=== PATIENT | female | born 1960 | race Caucasian/White ===

== ENCOUNTER → 2022-04-21 09:29 | Outpatient (CLI) | payer OTHER, SELFPAY ==
[2022-04-21 10:56] LABS: COVID19 -Nasal RAPID Negative (Negative)
== END ==
PROVIDERS: PCP Family Medicine; Referring Provider Orthopaedic Surgery Orthopaedic Surgery of the Spine; Visit Provider Orthopaedic Surgery Orthopaedic Surgery of the Spine
DX: Z20.822 Contact with and (suspected) exposure to COVID-19 (principal)
CPT/HCPCS: 87635; C9803

== ENCOUNTER 2022-04-22 12:49 | Inpatient (IN) | payer OTHER, SELFPAY ==
[2022-04-15 13:48] VITALS: BMI 39.4
[2022-04-22] VITALS (16 sets, daily range): BP systolic 107–141; BP diastolic 59–94; PULSE 67–86; RESP 5–18; TEMP 36–36.8; O2SAT 90–98; BMI 39.4
--- NOTE | 2022-04-22 | DI.RAD.S_ITS ---
PROCEDURE: XR LUMBAR SPINE 2-3V INDICATIONS: L3-4 TLIF TECHNIQUE: 2 views of the lumbar spine were acquired. COMPARISON: Outside Film, MR, MR LUMBAR SPINE WITHOUT CONTRAST, 02/09/2022, 16:29. FINDINGS: 2 intraoperative fluoroscopic images demonstrate posterior/interbody fusion at the L3-L4 level with hardware and intervertebral spacer in expected positions. Cholecystectomy clips. IMPRESSION: Intraoperative images demonstrating posterior/interbody fusion L3-L4. Dictated by: Denis CORBIN Interpreted: Sean Rodrigez MD on 04/22/2022 at 17:10 Transcribed by: ALFIE on 04/22/2022 at 17:11 Approved by: Sean Rodrigez M.D. on 04/23/2022 at 9:38
[2022-04-22] MEDS: LACTATED RINGERS 1,000 ML 42 ML IV ×2 (13:45→16:05)
--- NOTE | 2022-04-22 13:45 | PM.PREOP ---
Pre-operative Note COVID-19 COVID-19 status: Negative Result date/Date tested (Pos, Neg/Pending): 04/21/22 Criteria for continued procedure: Expected advancement of disease process, Possibility delay results in more complex future surgery or treatment, Increased loss of function, Continuing or worsening of significant or severe pain, Deterioration of the patient's condition or overall health and Delay expected to result in less-positive ultimate med/surg outcome Interval Note History & Physical reviewed/Exam performed by Physician: Yes Changes to H&P: No
[2022-04-22] MEDS: CEFAZOLIN 2 GM/100 ML PREMIX 100 ML IV ×2 (14:15→21:54)
[2022-04-22] MEDS: BUPIVACAINE 0.25% (PF) 60 ML, EPINEPHrine 0.3 MG INJ (14:30)
[2022-04-22] MEDS: BUPIVACAINE LIPOSOME 266 MG/20 ML VIAL INJ (14:40)
--- NOTE | 2022-04-22 14:45 | SUR.OPER ---
Prone on spine table, head in foam head support, padded chest and pelvic supports, gel pad at knees, lower legs supported by pillows; nipples, genitalia and toes free of pressure, arms secured on foam padded arm boards at <90 degrees abduction. Gel roll placed between heels. Tape over blanket at thigh secured to table.
--- NOTE | 2022-04-22 16:43 | P.OP_ITS ---
Operative Date/Time/Diagnoses Date of procedure: 04/22/22 Time of procedure: 14:00 Pre-op diagnosis: 1. L3-4 spinal stenosis 2. L3-4 spondylolisthesis Post-op diagnosis: same Procedure & Clinicians Procedure: 1. L3-4 Postero-lateral and posterior interbody fusion 2. L3-4 interbody cage placement. 3. L3-4 decompressive laminectomy with bilateral facetecomies 4. L3-4 Posterior non-segmental instrumentation 5. [place] of bone marrow from iliac crest 6. Utilization of microsurgical technique and operating microscope Same procedure as scheduled: Yes Indications: Patient has been having chronic back pain and worsening lumbar radiculopathy. Patient failed multiple conservative management with worsening pain weakness and numbness in her lower extremity. Patient has been having difficulty performing activity of daily living. After discussing risks benefits of treatment options, patient elected proceed with surgery. Surgeon: Carlos Sanz Resolution Manager: Charisse Chow Click Yes if Unassisted: No Anesthesia Type: General Operative Notes Closure Type: primary Specimen(s): none sent Prosthetic devices, grafts, tissues, transplants, or devices: Globus revolve screws, Rise cage Estimated Blood Loss (mL): 50 Blood products transfused: none Procedure in detail: Patient was seen in the preoperative area. Risks and benefits of the surgery was discussed with the patient. Informed consent was obtained from the patient and placed in the chart. Surgical site was marked. Patient was taken to the operative room. General anesthesia was administered. Prophylactic antibiotic was given to the patient less than 30 min before the incision was made. Patient was placed into a prone position on the Jordan table. Patient's back was then prepped and draped in the sterile fashion. Time-out was performed at this time. Using AP and lateral C-arm imaging the interval between L3-4 was identified and marked on patient's back. A 2 inch incision 2 in from midline was made on the right side first. The fascia was incised in line with skin incision. Globus MARS retractors was placed inside the incision and docked onto the L3 lamina. Using microsurgical technique and operating microscope, a L3 laminectomy and L3- 4 facetectomy was performed using a [place] rongeur. The disc space at L3-4 was identified. And a total diskectomy was performed at L3-4 level. The endplates were decorticated using a rasp and shaver. The total diskectomy and decortication was performed at L3-4 level in order to to accomplish a L3-4 fusion. The local bone from the laminectomy and facetectomy was saved for local bone grafting. After the total diskectomy and decortication was completed, Globus Trifecta bone graft material was combined with local bone that was harvested earlier. At this time, a separate skin is incision was made over the iliac crest. A Jamshidi needle was inserted into the iliac crest through a separate skin incision. 5 cc of bone marrow aspiration was obtained through the separate skin incision using a Jamshidi needle from the iliac crest. The bone marrow aspiration was combined with local bone and theTrifecta bone grafting material. The bone grafting material was placed into the L3-4 interbody space along with a expandable cage. The cage was expanded to its maximum height using the torque limiting screwdriver. At this time a mirror image incision was made on the left side. The fascia was incised in line with the skin incision. Globus MARS retractor was inserted and docked onto the L3-4 posterolateral gutter. Using the power drill, posterior- lateral decortication was performed at L3-4 level until bleeding cortical bone was identified. The remaining bone grafting material was placed into the L3-4 posterior lateral gutter he order to accomplish posterolateral fusion at the L3- 4 level. Using the double C-arm technique, pedicle screws were placed into the L3-4 pedicles bilaterally. This was done by placing the Jamshidi needle into the pedicles, then placing the guidewires over the Jamshidi needle, and finally placing the cannulated screws over the guidewires bilaterally. After the pedicle screws were placed, 2 titanium rods was locked into the heads of the pedicle screws using locking caps and torque limiting screwdriver. After all the hardware was placed, and confirmed with AP and lateral C-arm imaging, the wound was then irrigated with sterile normal saline and packed with Ray-Boni gauze for 3 min to accomplish hemostasis. After the gauze was removed the deep fascia was closed with #1 Vicryl suture. The subcutaneous layer was closed with 2-0 Vicryl. The skin was closed with skin cristina. Patient tolerated the procedure well. There were no complications. Complications: none Post-operative Condition: stable Disposition: PACU Plan for aftercare: Admit to inpatient hospital
[2022-04-22] MEDS: hydrOXYzine 50 MG/ML INJ IM (16:48)
[2022-04-22] MEDS: OXYCODONE/ACETAMINOPHEN 5/325 TABLET 1 TAB PO ×2 (16:59→17:38)
[2022-04-22] MEDS: LORazepam 2 MG/ML INJ 0.5 MG IV (17:07)
--- NOTE | 2022-04-22 17:28 | SUR.PHASEI ---
Report given to
[2022-04-22] MEDS: SODIUM CHLORIDE 0.9% 1,000 ML 100 ML IV (18:38)
[2022-04-22] MEDS: HYDROMORPHONE 0.5 MG INJ IV (19:51)
[2022-04-22] MEDS: NABUMETONE 500 MG TABLET PO (20:34)
[2022-04-22] MEDS: DOCUSATE 100 MG CAPSULE PO (20:35)
[2022-04-22] MEDS: AMITRIPTYLINE 25 MG TABLET 50 MG PO (20:35)
[2022-04-22] MEDS: miSOPROStoL 100 MCG TABLET PO (20:35)
[2022-04-22] MEDS: SENNOSIDES 8.6 MG TABLET 17.2 MG PO (20:36)
[2022-04-22] MEDS: CYCLOBENZAPRINE 10 MG TABLET PO (20:36)
[2022-04-22] MEDS: OXYCODONE IR 5 MG TABLET 10 MG PO (22:40)
[2022-04-23] MEDS: OXYCODONE IR 5 MG TABLET 10 MG PO ×3 (01:40→08:48)
--- NOTE | 2022-04-23 02:15 | PC.NURSE ---
Patient is alert and oriented. Breath sounds CTA with RA sat of 93%. HRR. Denies nausea. BT present but has not yet passed flatus. Had not voided, at shift change, since 1300 but did get up shortly before 2100 and voided 150cc; denies dysuria. Is assisted to reposition at patient's request. Dressing to back intact with serosanguinous shadow drainage. Wearing bilateral calf SCD's. Complains of pain on right side of back and has been medicated with both IV Dilaudid as well as po oxycodone and ice packs applied with good relief. Wearing bilateral SCD's. Fall risk score is high and bed alarm is activated.
[2022-04-23 04:07] VITALS: BP 112/68; PULSE 86; RESP 18; TEMP 36.4; O2SAT 95
[2022-04-23] MEDS: SODIUM CHLORIDE 0.9% 1,000 ML 100 ML IV (04:57)
[2022-04-23] MEDS: CEFAZOLIN 2 GM/100 ML PREMIX 100 ML IV (06:01)
[2022-04-23] MEDS: PANTOPRAZOLE DR 20 MG TABLET PO (06:03)
--- NOTE | 2022-04-23 07:28 | P.DS_ITS ---
History of Present Illness History of Present Illness Date Patient Seen: 04/23/22 Time Patient Seen: 07:28 Chief complaint: INPT Narrative: Operative Date/Time/Diagnoses Date of procedure: 04/22/22 Time of procedure: 14:00 Pre-op diagnosis: 1. L3-4 spinal stenosis 2. L3-4 spondylolisthesis Post-op diagnosis: same Procedure & Clinicians Procedure: 1. L3-4 Postero-lateral and posterior interbody fusion 2. L3-4 interbody cage placement. 3. L3-4 decompressive laminectomy with bilateral facetecomies 4. L3-4 Posterior non-segmental instrumentation 5. [place] of bone marrow from iliac crest 6. Utilization of microsurgical technique and operating microscope Same procedure as scheduled: Yes Indications: Patient has been having chronic back pain and worsening lumbar radiculopathy. Patient failed multiple conservative management with worsening pain weakness and numbness in her lower extremity.? Patient has been having difficulty performing activity of daily living.? After discussing risks benefits of treatment options, patient elected proceed with surgery. Surgeon: Carlos Sanz Executive Office Manager: Charisse Chow Click Yes if Unassisted: No Anesthesia Type: General Operative Notes Closure Type: primary Specimen(s): none sent Prosthetic devices, grafts, tissues, transplants, or devices: Globus revolve screws, Rise cage Estimated Blood Loss (mL): 50 Blood products transfused: none Discharge Providers Provider Date of admission: 04/22/22 12:49 Discharge Date: 04/23/22 Primary care physician: Ingris Toribio DO Consults: 04/22/22 18:21 Consult to Occupational Therapy Evaluate & Treat Comment: Physician Instructions: Evaluate and treat Consult to Physical Therapy Evaluate & Treat Comment: Physician Instructions: Evaluate and Treat Discharge provider: Lisa Allen PA-C Summary Hospital Course Discharge Diagnosis: spinal stenosis and spondylothesis s/p lumbar fusion Hospital Course: Ms Connell's hospital course was unremarkable. On POD# 1 she was feeling well and wanted to go home. She was voiding and eating without difficulty. Her pain was well-controlled with oral medication. She was evaluated by PT prior to discharge. Exam Vital Signs (past 8 hours): - 04/23/22 04:07 Temperature 97.6 F Pulse Rate 86 Respiratory Rate 18 Blood Pressure 112/68 Pulse Oximetry 95 Oxygen Flow Rate 0 Oxygen Delivery Method Room Air Oxygen Flow Rate 0 Narrative Exam Narrative: 5/5 strength in hip flexors, quadriceps, hamstrings, DF, PF, EHL bilaterally. Sensation to light touch intact in BLE. Calves soft, compressible, nontender and without palpable cords or masses. Low back dressing with some bloody drainage, L>R. [facility] Medical History (Updated 04/15/22 @ 14:18 by Dina Moore RN) Depression Elevated cholesterol HTN (hypertension) JOHNNIE (obstructive sleep apnea) Sciatica Stomach ulcer (~2012) Surgical History (Updated 04/23/22 @ 07:35 by Lisa Allen PA-C) History of bilateral tubal ligation History of carpal tunnel surgery of right wrist History of lumpectomy of left breast Hx of cholecystectomy (1984) Hx of dilation and curettage (~1988) Hx of laminectomy (2015) Social History household members: significant other Smoking Status: Never smoker alcohol intake: current Discharge Assessment & Plan Assessment and Plan Assessment: spinal stenosis and spondylothesis s/p lumbar fusion Plan of Treatment: Discharge home after PT if PT agrees. Multimodal pain control, f/u in office in 2 weeks. Discharge Plan Discharge Plan Patient Disposition: Home Discharge orders & Medications Prescriptions: New oxycodone 5 mg tablet 5 mg PO Q4H PRN (Reason: pain (scale score 7-10)) Qty: 60 0RF docusate sodium 100 mg Capsule 100 mg PO BID PRN (Reason: constipation) Qty: 60 2RF hydroxyzine pamoate 25 mg Capsule 25 mg PO Q4HR PRN (Reason: Nausea And Vomiting) Qty: 120 0RF acetaminophen 325 mg Tablet 650 mg PO Q6HR PRN (Reason: Pain, Mild (1-3)) Qty: 120 0RF Continued losartan 50 mg Tablet 50 mg PO DAILY cyclobenzaprine 10 mg Tablet 10 mg PO BID propranolol 40 mg Tablet 40 mg PO QAM amitriptyline 25 mg Tablet 50 mg PO BEDTIME omeprazole 20 mg Capsule,Delayed Release(Dr/Ec) 20 mg PO DAILY nabumetone 500 mg Tablet 500 mg PO QID PRN (Reason: Pain) misoprostol 100 mcg PO QID Discontinued hydrocodone-acetaminophen 5-325 mg Tablet 1 tab PO Q4-6H PRN (Reason: Pain) Follow up/Referrals: Ingris Toribio DO [Primary Care Provider] - Carlos Sanz MD [Physician] - As previously scheduled (Follow up with Lisa Allen PA-C, on 05/05/2022 @ 9:30 am at [facility] office in [place].) Diet/Activity/Treatments Diet: Diet as Tolerated Activity: No deep bending or twisting at the waist. No lifting more than 10 pounds. Cold/Heat Therapy: Heating pad to back as needed for pain. Skin/Wound/Dressing Care Report to your healthcare provider any signs of infection, such as:: chills, fever, night sweats, unusual drainage and unusual redness Dressing: May shower; keep dressing as dry as possible. May remove dressing if it becomes wet inside and replace with clean, dry gauze. No bathing or otherwise soaking incisions. Do not apply any creams, lotions, or ointments to incisions. Visit Report/Discharge Packet Instructions: DI for Prescription Opioid Use, DI for Transforaminal Lumbar Interbody Fusion Stand Alone Forms: Surgery Discharge Discharge Data Primary Care Provider: Ingris Toribio
[2022-04-23 08:48] VITALS: BP 95/72; PULSE 92; RESP 16; TEMP 36.2; TEMP 36.4; O2SAT 95
[2022-04-23] MEDS: PROPRANOLOL 40 MG TABLET PO (08:49)
[2022-04-23] MEDS: CYCLOBENZAPRINE 10 MG TABLET PO (08:50)
[2022-04-23 08:51] VITALS: BP 95/72; PULSE 92
[2022-04-23] MEDS: LOSARTAN 50 MG TABLET PO (08:51)
[2022-04-23] MEDS: DOCUSATE 100 MG CAPSULE PO (08:52)
[2022-04-23 08:53] VITALS: TEMP 37
[2022-04-23] MEDS: ACETAMINOPHEN 325 MG TABLET 650 MG PO (08:53)
[2022-04-23] MEDS: miSOPROStoL 100 MCG TABLET PO (08:53)
[2022-04-23] MEDS: HYDROMORPHONE 0.5 MG INJ IV (08:54)
--- NOTE | 2022-04-23 09:45 | PT.IIE ---
Current Diagnoses Spondylolisthesis, lumbar region (04/22/22) Spinal stenosis, lumbar region with neurogenic claudication (04/22/22) Arthrodesis status (04/22/22) Surgery Performed Operation Date: 04/22/22 14:45 Actual Procedures p L3-4 TLIF - Carlos Sanz MD Surgical History (Last Updated 04/15/22 @ 14:18 by Dina Moore, RN) History of bilateral tubal ligation History of carpal tunnel surgery of right wrist History of lumpectomy of left breast Hx of cholecystectomy (1984) Hx of dilation and curettage (~1988) Hx of laminectomy (2015) Medical History (Last Updated 04/15/22 @ 14:18 by Dina Moore, [place]) Depression Elevated cholesterol HTN (hypertension) JOHNNIE (obstructive sleep apnea) Sciatica Stomach ulcer (~2012) Physical Therapy Inpatient Evaluation/Re-Eval M1 PT/OT-IP Prior Functional Status Start: 04/23/22 12:30 Freq: NEEDED Status: Active Protocol: Document 04/23/22 09:45 AB (Rec: 04/23/22 12:40 AB [id number]) Medical Review Prior Functional Status Medical History Reviewed Yes Communication able to make needs known Mobility and Gait pt stated that she is indpeendent wiht all moblities and ambualtion without AD Social History Household Members significant other Living Arrangements House Number of Floors (Floors) One Floor Number of Stairs To Enter/Railing? 1 step up to bathroom level Home Environment Standard Height Toilet,Walk in Shower Home Equipment Front Wheel Walker,Four Wheel Walker,Straight Cane,Raised Toilet Seat w/Armrests,Hand Held Shower Additional Social History Comment pt has an adjustable bed pt will have her partner assist her as well as her daughter coming in daily to assist her if needed M2 PT-IP Current Condition Start: 04/23/22 12:30 Freq: NEEDED Status: Active Protocol: Document 04/23/22 09:45 AB (Rec: 04/23/22 12:40 AB [email or web address]) Physical Therapy Current Condition Current Condition Evaluation Date 04/23/22 Treatment Diagnosis s/p L3-4 TLIF; difficulty in walking Onset Date 04/22/22 M3 PT-IP Subjective Start: 04/23/22 12:30 Freq: NEEDED Status: Active Protocol: Document 04/23/22 09:45 AB (Rec: 04/23/22 12:40 [id number]) Subjective Physical Therapy Visit Type Type Initial Evaluation Visit Start Time 09:45 Visit Stop Time 10:11 Total Visit Minutes 26 Number of MEDICAID ANALYST Visits 0 Physical Therapy Visit Comments Patient Comments pt is agreeable to do PT Therapy Pain Assessment Pain When Pain Assessed At Rest Pain Present Pain Present Pain Reported Location Lower Back Intensity 4 Scale Used Numeric (0 - 10) Pain Management Techniques Apply Cold,Distraction, Modification of Treatment,Re- positioning,Timing of Activity with Medications M4 PT-IP Mobility and Gait Start: 04/23/22 12:30 Freq: NEEDED Status: Active Protocol: Document 04/23/22 09:45 AB (Rec: 04/23/22 12:40 [id number]) PT-Bed Mobility Assessment Rolling Type of Rolling Log Rolling Level of Assist Standby Assistance Supine to Sit Supine to Sit Standby Assistance PT-Transfer Assessment Sit to and From Stand Sit to and from Stand Standby Assistance Equipment Transfer Assistive Device Gait Belt,Front Wheeled Walker Orthotic/Prosthetic Devices or Brace: No Transfers Transfer Destination Chair Transfer Technique ambulated Transfer Ability Level of Assist Standby Assistance,1 Person Assistance,Use of Upper Extremities Comments Mobility Comments reviewed back precautions with pt and pt requires cues to recall. completed log rool supine to sit SBA. able to sit on EOB SBA. completed sit to stand SBA and ambulated in room ~ 40 ft using FWW SBA. educated pt on up/down platform step. ambulated towards platform step and completed up/down step using FWW SBA to CGA. pt ambulated back to her room using FWW and sat on chair. positioned on chair. call light and table placed within reach. pt and daughter without further concerns. Gait Assessment Gait Gait Assistance Required: Standby Assistance Distance (Feet) 40 Able to Maintain Weight Bearing Status Yes During Gait Assistive Devices Assistive Device Gait Belt,Front Wheeled Walker Orthotic/Prosthetic Devices or Brace: No Gait Deviations General Gait Pattern Antalgic,Decreased Stride Length,Decreased Feet Clearance Factors Limiting Gait Function Factors Limiting Gait Function Decreased Activity Tolerance, Decreased Strength,Limited Range of Motion,Pain,Poor Balance Stair Climbing Assessment Evaluation Level of Assist On Stairs Standby Assistance,Contact Guard Assistance Devices Stair Climbing Assistive Devices Front Wheel Walker Technique/Endurance Stair Climbing Direction Ascend and Descend Stair Climbing Technique Step to Step Number of Steps Climbed 1 Query Text: Stair Climbing Set # Repetitions (reps) 2 PT-Balance Assessment Sitting Balance and Reactions Static Sitting Balance Ability Normal Dynamic Sitting Balance Ability Normal Standing Balance and Reactions Static Standing Balance Ability Fair Dynamic Standing Balance Ability Fair Device Used FWW M5 PT-IP Objective Assessments Start: 04/23/22 12:30 Freq: NEEDED Status: Active Protocol: Document 04/23/22 09:45 AB (Rec: 04/23/22 12:40 AB [email or web address]) Orientation Orientation/Cognition Level of Alertness Alert Orientation Name,Place,Situation Language Function Ability No Deficits Noted Safety Awareness Understands Safety Issues Memory Description No Deficits Noted Gross Range of Motion Lower Extremity ROM Assessment Within Functional Limits Strength Lower Extremity Strength Assessment Within Functional Limits Coordination Assessment Gross Coordination Gross Coordination WNL Muscle Tone Muscle Tone WNL Yes M6 PT-IP Treatment Start: 04/23/22 12:30 Freq: NEEDED Status: Active Protocol: Document 04/23/22 09:45 AB (Rec: 04/23/22 12:[facility] Treatment Education Education Provided Precautions,Weight Bearing Status,Safety M7 PT-IP Assessment and Plan Start: 04/23/22 12:30 Freq: NEEDED Status: Active Protocol: Document 04/23/22 09:45 AB (Rec: 04/23/22 12:40 [facility] PT Summary Assessment and Plan Potential Rehabilitation Potential Good Status of Condition at Evaluation Stable Summary Impairments Pain,ROM,Strength,Balance, Coordination,Sensation,Tone, Cognition,Bed Mobility, Transfers,Gait,Activity Tolerance Assessment Summary pt requiring SBA with mobility using FWW and plans to go home with her significant other and daughter to assist as needed. pt may go home when medically stable. Goals Bed Mobility Goal Independent Transfer Goal Independent,Front Wheeled Walker Gait Goal Independent,Front Wheel Walker Gait Distance 250 Other Goals up/down 1 step using FWW mod I Days to Meet Goals 3 Frequency of Treatment Frequency Of Treatment Twice a Day Treatment Plan Physical Therapy Treatment Plan Bed Mobility Training,Transfer Training,Gait Training, Therapeutic Exercise,Balance Retraining,Post Op Education, Discharge Planning,Hot or Cold Pack,Neuromuscular Re-ed, Coordination Retraining,Manual Therapy Precautions Lumbar Precautions Log Roll,No Twisting,Limit Bending,Lifting Restriction of 10 lbs,Gait Belt above Incisional Area Recommendations To Nursing Amount of Assist Needed Standby Assistance Discharge Recommendations PT Discharge Recommendations Home with Assistance Transportation Needs at Discharge Private Vehicle
--- NOTE | 2022-04-23 09:46 | OT.IP.EVAL ---
Current Diagnoses Spondylolisthesis, lumbar region (04/22/22) Spinal stenosis, lumbar region with neurogenic claudication (04/22/22) Arthrodesis status (04/22/22) Surgery Performed Operation Date: 04/22/22 14:45 Actual Procedures p L3-4 TLIF - Carlos Sanz MD Past Medical History (Last Updated 04/15/22 @ 14:18 by Dina Moore, RN) Depression Elevated cholesterol HTN (hypertension) JOHNNIE (obstructive sleep apnea) Sciatica Stomach ulcer (~2012) Surgical History (Last Updated 04/15/22 @ 14:18 by Dina Moore RN) History of bilateral tubal ligation History of carpal tunnel surgery of right wrist History of lumpectomy of left breast Hx of cholecystectomy (1984) Hx of dilation and curettage (~1988) Hx of laminectomy (2015) Occupational Therapy Inpatient Evaluation/Re-Eval M1 PT/OT-IP Prior Functional Status Start: 04/23/22 12:30 Freq: NEEDED Status: Active Protocol: Document 04/23/22 12:36 [facility] (Rec: 04/23/22 12:54 [facility] [id number]) Medical Review Prior Functional Status Communication independent Mobility and Gait Pt states could only do a couple steps before having pain and having to sit down. Activities of Daily Living and IADL's Pt states able to do her ADL's and shared IADl need with her significant other. Social History Household Members significant other Living Arrangements House Number of Floors (Floors) Two Floors Number of Stairs To Enter/Railing? Pt lives in the downstairs of the house. Pt has one step into the bathroom. There is a cabinet to the right to assist for the step. Home Environment Standard Height Toilet,Walk in Shower Home Equipment Front Wheel Walker,Four Wheel Walker,Straight Cane,Raised Toilet Seat w/Armrests,Shower Seat with Backrest,Hand Held Shower,Long Handled Shoe Horn, Inside Sales Trainer,Sock Aid Additional Social History Comment Pt's significant other to assist and daughter as needed. Pt looking to sleep in the adjustable bed of her significant other at this time and therefore to be getting out on the left side. M2 OT-IP Current Condition Start: 04/23/22 12:32 Freq: Status: Active Protocol: Document 04/23/22 12:36 [facility] (Rec: 04/23/22 12:54 [facility] [id number]) Occupational Therapy Current Condition Current Condition Evaluation Date 04/23/22 Treatment Diagnosis S/p L3-4 TLIF Diagnosis Onset Date 04/22/22 Post Operative Precautions Lumbar Precautions Log Roll,No Twisting,Limit Bending,Lifting Restriction of 10 lbs,Gait Belt above Incisional Area M3 OT- IP Subjective and Pain Start: 04/23/22 12:32 Freq: Status: Active Protocol: Document 04/23/22 12:36 [facility] (Rec: 04/23/22 12:54 [facility] [id number]) OT- Subjective Occupational Therapy Visit Type Visit Start Time 09:10 Visit Stop Time 09:46 Total Visit Minutes 36 Occupational Therapy Visit Comments Patient Comments Pt agreed to get up and her daughter present in the room. Patient/Caregiver Goals TO go home. OT Pain Assessment Pain When Pain Assessed At Rest Pain Present Pain Present Pain Reported Location Lower Back Intensity 3 Scale Used Numeric (0 - 10) M4 OT- IP ADL's Start: 04/23/22 12:32 Freq: Status: Active Protocol: Document 04/23/22 12:36 [facility] (Rec: 04/23/22 12:54 [facility] [id number]) OT [id number] Comments OT Self-Feeding Comments Not at meal time. OT ADL-Grooming General Evaluation Grooming Ability Standby Assistance Areas Needing Assistance Retrieving/Set-up of Grooming Items OT ADL-Oral Care General Eval Oral Care Ability Independent Comments Oral Care Comments Initial vc to spit in to a cup to best follow her back precautions. OT ADL-Dressing General Eval Upper Body Dressing Ability Standby Assistance Lower Body Dressing Ability Maximum Assistance Comments OT Dressing Comments Pt just wanting her daughter to assist at this time for LB dressing needs, but does have LB dressing equipment at home to use. OT ADL-Toileting Comments OT Toileting Comments At this time pt unable to reach back to wipe and would benefit from toilet paper aid /bidet/wet ones and assist. OT ADL-Bathing Comments OT Bathing Comments Pt not wanting to shower at this time. M5 OT- IP IADL's Start: 04/23/22 12:32 Freq: Status: Active Protocol: Document 04/23/22 12:36 [facility] (Rec: 04/23/22 12:54 [facility] [id number]) OT-Instrumental Activities of Daily Living Home Safety Awareness Ability to Problem Solve Emergency Able to Problem Solve Situations Home Safety Comments Pt's significant other will be able to assist for all needs. Money Management Money Management Caregiver Provides Assistance Meal Preparation Meal Preparation Caregiver Provides Assist Meteorologist In Charge Meteorologist In Charge Caregiver Provides Assist M6 OT- IP Functional Cognition Start: 04/23/22 12:32 Freq: Status: Active Protocol: Document 04/23/22 12:36 [facility] (Rec: 04/23/22 12:54 [facility] [id number]) Cognitive Factors Limiting Selfcare Function Cognitive Ability Level of Alertness Alert Patient Orientation Name,Age,Birthday,Month,Date, Year,Day of Week,Place, Situation Attention Span Ability Capable of Focused Attention, Capable of Sustained Attention Ability to Follow Commands Able to Follow Multi-Step Commands Memory Description No Deficits Noted Safety Awareness No Deficits Noted Problem Solving Ability No deficits Noted Cognitive Comments Cognitive Assessment Comments Pt intact and able to follow her back precautions well for all ADl and mobility needs at this time. OT- Vision and Hearing OT- Hearing Assessment OT- Hearing Assessment WF M7 OT- IP Mobility and Balance Start: 04/23/22 12:32 Freq: Status: Active Protocol: Document 04/23/22 12:36 [facility] (Rec: 04/23/22 12:54 [facility] [id number]) OT- Bed Mobility Assessment Rolling Type of Rolling Roll to Left Level of Assistance Standby Assistance,Bedrails Supine to Sit Supine to Sit Assist Contact Guard Assistance Sit to Supine Sit to Supine Assist Minimal Assistance Scooting Scooting to Edge of Bed Standby Assistance OT-Transfer Assessment Sit to and From Stand Sit to and from Stand Standby Assistance Transfers Transfer Ability Standby Assistance Technique Transfer Destination Bed Transfer Technique Stand Step Pivot Devices Transfer Assistive Devices Gait Belt,Front Wheeled Walker Comments Mobility Comments Able to educated pt's daughter to michelle/doff gait belt and went over need for assist for her legs back into bed. Pt mainly just SBA at this time with the FWW for level surfaces in the room . OT- Balance Assessment Sitting Balance and Reactions Static Sitting Balance Ability Normal Dynamic Sitting Balance Ability Good Standing Balance and Reactions Static Standing Balance Ability Good Dynamic Standing Balance Ability Fair M8 OT- IP Objective Assessments Start: 04/23/22 12:32 Freq: Status: Active Protocol: Document 04/23/22 12:36 [facility] (Rec: 04/23/22 12:54 [facility] [id number]) OT-Muscle Tone Assessment Muscle Tone WNL Yes M9 OT- IP Assessment and Plan Start: 04/23/22 12:32 Freq: Status: Active Protocol: Document 04/23/22 12:36 [facility] (Rec: 04/23/22 12:54 [facility] [id number]) OT Summary Assessment and Plan Potential Rehabilitation Potential Excellent Analytic Complexity at Evaluation Low Summary OT Impairments Pain,Balance,Functional Mobility,Dressing,Toileting, Bathing,Toilet Transfers, Shower Transfers Progress Towards Goals Progressing Toward Goals Assessment Summary Pt low complexity and going well with ADl and mobility needs and daughter able to participate in caregiver training with OT for ADL needs and mobility. Pt would possible benefit from a BSC as goes to the bathroom often at night, toilet paper aid/ assist, and long handled sponge. Pt to go home with supportive family when stable. Goals Grooming Goal Independent Dressing Goal Independent Toileting Goal Independent Bathing Goal Standby Assistance Toilet Transfer Goal Independent Shower Transfer Goal Independent Days to Meet Goals 3 Frequency of Treatment Frequency Of Treatment Once a Day Treatment Plan OT Treatment Plan ADL Training,Functional Mobility,Patient/Family Education,Discharge Planning Discharge Recommendations OT Discharge Recommendations Home with Assistance Transportation Needs at Discharge Private Vehicle
--- NOTE | 2022-04-23 11:33 | CM.DANOTE ---
DCP Assessment: Payor: [place] PCP: Ingris Toribio MD Pt presented to the hospital for scheduled spinal stenosis lumbar fusion surgery. Pt admitted to the floor for further management of surgical procedure. DCP unable to meet with pt as the pt was already discharged by the time of assessment. Per PT, pt was cleared to go home with no needs. Per MD, no needs and to follow up in the clinic in 2 weeks. Josselin Lima RN/DCP Discharge Planning/Care Management Pre-Anesthesia Assessment Start: 04/15/22 13:48 Freq: Status: Complete Protocol: Document 04/15/22 13:48 [facility] (Rec: 04/15/22 14:33 [facility] [id number]) Pre-Anesthesia Assessment Preferred Name Yuridia Patient Information Reviewed Via Phone Assessment Assessment Completed With Patient Diagnostic Results BMP/CMP,CBC,EKG Comment Outside labs/ECG scanned, COVID screen @ [facility]needs to schedule Primary Care Provider Ingris Toribio Seen Specialist in Last 12 Months Yes Specialist Seen Orthopedist Primary Language Mongolian Industrial Sales Manager Required No Height 162.56 cm Weight 104.326 kg Body Mass Index (BMI) 39.4 Hearing Ability Normal Visual Assist Magnifying Glass Dentition Type Teeth, Natural Present,Teeth, Missing Barriers to Learning None Hx Anesthesia Reactions No Hx Family Anesthesia Reaction No Hx Malignant Hyperthermia No Hx Blood Transfusions No Anesthesia Review Requested No Automation Lead No alcohol intake current alcohol intake frequency a few times a week Smoking Status Never smoker Substance Use Type does not use Pain Present Pain Reported Musculoskeletal Symptoms Abnormal Gait,Difficulty Walking,Numbness,Radiating Pain into Limb History of Falling (Recent or History of Yes ) Patient is completely paralyzed or No completely immobile Mental Status Oriented to own ability Is patient on oxygen? No Does patient have URIARTE/SOB No Hx Sleep Apnea Yes CPAP/BIPAP use prescribed not used Will Bring CPAP/BIPAP DOS Yes Currently Taking a Beta Lynsey Yes: Propranolol Can You Climb a Flight of Stairs Without Yes SOB Hx Chest Pain No Hx SOB No Hx Syncope or Dizziness Yes: Very rare dizziness with positional changes Anti-Coagulant Therapy No Has a Water Pipe Installer No Cardiac Testing No Hx Pacemaker/ICD No Pacemaker Rep Required? No Cardiac Clearance Received Not Applicable Diet Type At Home Regular dysphagia No Bladder Pattern Incontinent, Stress Urinary Catheter Present No Hx Urinary Self Catheterization No Diabetes No Patient No Lactating No Hx Drug Resistant Organism No Presence of External or Internal Medical No Devices Have you had any close contact with No someone diagnosed with COVID-19? Received a COVID vaccine? Yes Received all doses? Yes Marital Status Lives With significant other Prior Living Arrangements House Number of Floors (Floors) One Floor Support System Child/Children,Significant Other Does the Patient Have Assistance After Yes: Daughters will also Surgery assist with care at [place] Patient Discharge Plan Description Return Home Comment Pt advised 1 night length of stay per surgeon Feels Safe in Current Environment Yes Been Physically Hurt or Threatened By a No Person in Current Environment Do you have thoughts of harming yourself None or others? Are you currently considering suicide? No Do you have a plan to hurt yourself or No Plan others? Do You Have Any Spiritual Beliefs That No May Affect Your HC Choices? Do You Have Any Cultural Practices That No May Affect Your HC Choices? Who Can We Speak to About Patient's Care Family, friends Identifying Code for Release of Patient Declines to issue Information Health Care Proxy/Next of Kin Bindu (daughter) Dneis (S.O .) Erin (daughter) Health Care Proxy Phone Number Bindu: [phone] [employer]: [phone] Erin: [phone] Emergency Contact Name Bindu (daughter) Denis (S.O .) Erin (daughter) Emergency Contact Phone Number Bindu: [phone] [employer]: [phone] Erin: [phone] Advance Directives? No Power of Assistant Restaurant General Manager No PAC Instructions Bring CPAP/BIPAP,Durable medical equipment,Medications to take/avoid,Nasal antibiotic ,No ETOH/petroleum product on skin DOS,NPO,Post-op transportation,Pre-surgical wash,Sensory aids,Sturdy shoes /comfortable clothes,Do not bring valuables and remove jewelry
== END 2022-04-23 10:34 | disposition home or self-care (01) | DRG 455 ==
PROVIDERS: Admitting Provider Orthopaedic Surgery Orthopaedic Surgery of the Spine; PCP Family Medicine; Referring Provider Orthopaedic Surgery Orthopaedic Surgery of the Spine; Visit Provider Orthopaedic Surgery Orthopaedic Surgery of the Spine
PROC: 0SG00AJ Fusion of Lumbar Vertebral Joint with Interbody Fusion Device, Posterior Approach, Anterior Column, Open Approach (ICD-10-PCS; principal; 2022-04-22 14:45)
DX: M48.061 Spinal stenosis, lumbar region without neurogenic claudication (principal); M43.16 Spondylolisthesis, lumbar region; I10 Essential (primary) hypertension; F32.A Depression, unspecified; Z20.822 Contact with and (suspected) exposure to COVID-19
CPT/HCPCS: 72100; 76000; 82962; 97161; 97165; 97535; C1713; C9290; J0171; J0690; J1170; J2060; J2250; J2704; J3010; J3410